=== PATIENT | female | born 2000 | race Caucasian/White ===

== ENCOUNTER 2018-02-23 12:10 | Emergency (ER) | payer OTHER ==
[2018-02-23] MEDS ORDERED: ONDANSETRON 4 MG/2 ML VIAL IVP ONE (12:33)
[2018-02-23] MEDS ORDERED: IPRATROPIUM/ALBUTEROL 3 ML DEYVIAL IH ONE (12:34)
--- NOTE | 2018-02-23 12:34 | EDPHY ---
H & P Stated Complaint: cough and congestion since last Time Seen by Provider: 02/23/18 12:24 HPI/ROS: CHIEF COMPLAINT: Cough, sinus congestion, vomiting HISTORY OF PRESENT ILLNESS: The patient is a obese 17-year-old female with a history of asthma who comes to the emergency department complaining of a cough productive of yellow sputum as well as sinus congestion. She states that she has had the symptoms for the last 4-5 days. No fever. No body aches. No chills. She had a slight sore throat initially but that has since resolved. She denies difficulty breathing. She has been using her inhaler. She also reports that she has vomited several times today and feels nauseous when she tries to eat. No diarrhea. No blood in her vomit. Severity: Moderate Modifying factors: None REVIEW OF SYSTEMS: Constitutional: denies: chills, fever, recent illness, recent injury EENTM: denies: blurred vision, double vision, nose congestion Respiratory: See HPI Cardiac: denies: chest pain, irregular heart rate, lightheadedness, palpitations Gastrointestinal/Abdominal: See HPI denies: abdominal pain, diarrhea, blood streaked stools Genitourinary: denies: dysuria, frequency, hematuria, pain Musculoskeletal: denies: joint pain, muscle pain Skin: denies: lesions, rash, jaundice, bruising Neurological: denies: headache, numbness, paresthesia, tingling, dizziness, weakness Hematologic/Lymphatic: denies: blood clots, easy bleeding, easy bruising Immunologic/allergic: denies: HIV/AIDS, transplant 10 systems reviewed and negative except as noted EXAM: GENERAL: Well-appearing, obese and in no acute distress. HEAD: Atraumatic, normocephalic. EYES: Pupils equal round and reactive to light, extraocular movements intact, sclera anicteric, conjunctiva are normal. ENT: TMs normal, nares patent, oropharynx clear without exudates. Moist mucous membranes. NECK: Normal range of motion, supple without lymphadenopathy or JVD. LUNGS: Breath sounds clear to auscultation bilaterally and equal. No wheezes rales or rhonchi. HEART: Regular rate and rhythm without murmurs, rubs or gallops. ABDOMEN: Soft, nontender, normoactive bowel sounds. No guarding, no rebound. No masses appreciated. BACK: No CVA tenderness, no spinal tenderness, step-offs or deformities EXTREMITIES: Normal range of motion, no pitting or edema. No clubbing or cyanosis. NEUROLOGICAL: Cranial nerves II through XII grossly intact. Normal speech, normal gait. 5/5 strength, normal movement in all extremities, normal sensation , normal reflexes PSYCH: Normal mood, normal affect. SKIN: Warm, dry, normal turgor, no visible rashes or lesions. Source: Patient Exam Limitations: No limitations - Personal History LMP (Females 10-55): Irregular Current Tetanus Diphtheria and Acellular Pertussis (TDAP): Unsure - Medical/Surgical History Hx Asthma: Yes Hx Chronic Respiratory Disease: No Hx Diabetes: No Hx Cardiac Disease: No Hx Renal Disease: No Hx Cirrhosis: No Hx Alcoholism: No Hx HIV/AIDS: No Other PMH: asthma - Family History Significant Family History: No pertinent family hx - Social History Smoking Status: Never smoked Alcohol Use: Sober Drug Use: None Constitutional: Initial Vital Signs Temperature (C) 37.4 C 02/23/18 12:24 Heart Rate 105 H 02/23/18 12:24 Respiratory Rate 18 02/23/18 12:24 Blood Pressure 156/93 H 02/23/18 12:24 O2 Sat (%) 96 02/23/18 12:24 O2 Delivery Mode Room Air Allergies/Adverse Reactions: amoxicillin Allergy (Verified 02/23/18 12:24) Home Medications: Medication Instructions Recorded Albuterol 02/23/18 Ondansetron Odt [Zofran Odt 4 mg 4 mg PO Q4 PRN #20 tab 02/23/18 (RX)] Medical Decision Making - Diagnostics Imaging Results: Imaging Impressions Chest X-Ray 02/23/18 12:32 Impression: Clear lungs. No pneumonia. Imaging: Discussed imaging studies w/ engine lathe tender Radiologist ED Course/Re-evaluation: 1:40 p.m. We discussed the x-ray and flu swab results. Patient is reassured. She does feel slightly better after DuoNeb in feels much less nauseous after Zofran. She is tolerating p.o.. We discussed the fact that this is likely a viral URI possibly a viral bronchitis. I recommended rest and hydration. She understands and agrees this plan. We discussed indications for returning. Differential Diagnosis: Partial list of the Differential diagnosis considered include but were not limited to; bronchitis, upper respiratory tract infection, influenza, asthma exacerbation and although unlikely based on the history and physical exam, I also considered pneumonia, strep throat, sepsis, meningitis. I discussed these differential diagnoses and the plan with the patient as well as the usual and expected course. The patient understands that the diagnosis is provisional and that in medicine we are not always correct and that further workup is often warranted. Usual and customary warnings were given. All of the patient's questions were answered. The patient was instructed to return to the emergency department should the symptoms at all worsen or return, otherwise to followup with the physician as we discussed. - Data Points Medications Given: Discontinued Medications Albuterol/Ipratropium (Duoneb) 3 ml IH EDNOW ONE Stop: 02/23/18 12:35 Last Admin: 02/23/18 13:03 Dose: 3 ml Ondansetron HCl (Zofran) 4 mg IVP EDNOW ONE Stop: 02/23/18 12:34 Last Admin: 02/23/18 13:06 Dose: Not Given Ondansetron HCl (Zofran Odt) 4 mg PO EDNOW ONE Stop: 02/23/18 13:05 Last Admin: 02/23/18 13:04 Dose: 4 mg Point of Care Test Results: Influenza PCR Flu Nasal Swab Collection Date 02/23/18 Flu Nasal Swab Collection Time 12:40 Influenza A Result Not Detected Influenza B Result Not Detected Departure - Departure Disposition: Home, Routine, Self-Care Clinical Impression: Bronchitis Vomiting Qualifiers: Vomiting type: unspecified Vomiting Intractability: intractable Nausea presence : with nausea Qualified Code(s): R11.2 - Nausea with vomiting, unspecified Condition: Fair Instructions: Acute Bronchitis (ED), Acute Nausea and Vomiting (ED) Referrals: NONE *PRIMARY CARE P,. [Primary Care Provider] - As per Instructions Prescriptions: Ondansetron Odt [Zofran Odt 4 mg (RX)] 4 mg PO Q4 PRN #20 tab PRN Reason: Nausea & Vomiting
[2018-02-23] MEDS ORDERED: ONDANSETRON DISINTEGRATING 4 MG TAB ONE (13:02)
[2018-02-23] MEDS ORDERED: ONDANSETRON DISINTEGRATING 4 MG TAB PO ONE (13:04)
[2018-02-23 13:57] VITALS: BP 143/83
== END 2018-02-23 13:56 | disposition home or self-care (01) ==
LOC: CED 12:10
DX: J40 Bronchitis, not specified as acute or chronic (principal); R11.10 Vomiting, unspecified
CPT/HCPCS: 71046-PO; 99283-ER